=== PATIENT | male | born 1940 | race Caucasian/White ===

== ENCOUNTER 2017-03-17 13:59 | Emergency (ER) | payer MEDICARE, OTHER ==
--- NOTE | ~2017-03-17 | CT4 ---
[facility] A Service of [facility] RADIOLOGY TEXT RESULTS PATIENT: EMILIE BRINK LOCATION: [facility] : 40 UNIT #: [id number] AGE: [address]: David Brannon MD SEX: M ORDER DR: [id number] [facility] [address] [place], [place] [address] [id number] E MR#: [id number] #: [id number] NAME: EMILIE BRINK : 1940 SEX: M STUDY DATE/TIME: 03/17/2017 15:40 UNIT: [facility] ROOM: STUDY DESCRIPTION: CT Abd and Pelv Wo Cont Attending Physician: Cristofer Brannon M.D. Ordering Physician: Savage Lubin M.D. Primary Care Physician: No Primary Care Physician MEDICAL IMAGING REPORT This report is preliminary unless electronic signature is present EXAM CT of the abdomen and pelvis without contrast. INDICATIONS Abdominal pain for [address] of the abdomen and pelvis was performed with oral contrast only. Coronal and sagittal reformatted images were obtained. NOTE: This CT exam was performed with one or more of the following radiation dose reduction techniques: automatic exposure control, adjustment of mA and/or kV according to patient size, and iterative reconstruction. COMPARISON Comparison is made with CT of the abdomen and pelvis from 10/23/2016. FINDINGS The lung bases are clear. Cirrhosis of the liver. There is an ill-defined hypodense mass within the right lobe of the liver which is consistent with the biopsy proven hepatocellular carcinoma. There is also a small exophytic lesion in the left lobe of the liver also consistent with hepatocellular carcinoma. Cholelithiasis. Splenomegaly. The kidneys are unremarkable. The adrenal glands and pancreas are unremarkable. There has been a prior EVAR. 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 I am unsure if this is due to surgical intervention. There is a new fluid collection located within the left psoas muscle immediately adjacent to the aneurysm sac. It measures about 11.0 x 5.1 x 7.2 cm. There is no gas within the collection. PELVIS: There is trace free fluid. Sigmoid diverticulosis. The appendix is normal. Not mentioned above, there is a scant amount of ascites [facility] A Service of [facility] RADIOLOGY TEXT RESULTS PATIENT: EMILIE BRINK LOCATION: [facility] : 40 UNIT #: [id number] AGE: [address]: David Brannon MD SEX: M ORDER DR: adjacent to the tip of the liver. Bone windows demonstrate postoperative changes of the left side of the pelvis. Chronic compression deformity of L1. IMPRESSION 1. Cirrhosis with evidence of biopsy proven hepatocellular carcinoma. The HCCs are not adequately evaluated due to the lack of IV contrast. 2. Patient has a prior EVAR. The aneurysm sac has decreased in size since the most recent studies and previously had a very abnormal appearance with thickening and adjacent stranding. There has been development of a new fluid collection within the left psoas muscle which lies immediately adjacent to the aneurysm sac. The contents of the fluid collection are indeterminate. It is simple fluid and it does not containing gas to suggest obvious infection. I am unsure if the patient has had any operative intervention to evacuate the contents of the aneurysm sac given its significant decrease in size or if there is spontaneous evacuation of the aneurysm sac contents into the left psoas muscle. 3. Additional findings as described above. Dictated by... Miguel Ángel Elmore M.D. THIS IS AN ELECTRONICALLY VERIFIED REPORT Miguel Ángel Elmore M.D. at 03/19/2017 7:26 AM MORALES/humberto TD: 03/17/2017 20:00 JOB #: [id number] MEDICAL IMAGING REPORT Page 1 of 1 COPY
[~2017-03-17 13:59] MED LIST: ALBUTEROL17 GM INH; ASPIRIN81 M2 PO; ATENOLOL; ATENOLOL PO; ATENOLOL50 MG; ATENOLOL50 MG PO; AZITHROMYCIN250 MG PO; CHRONULAC10 GM/15 M PO; DIAZEPAM PO; DIAZEPAM10 MG PO; ECOTRIN81 M1 PO; GENERLAC; IBUPROFEN800 MG; IBUPROFEN800 MG PO; KEFLEX PO; KEFLEX500 M1 PO; LASIX20 MG PO; LINZESS145 MCG PO; METHADONE HCL10 MG PO; METHADONE PO; NICOTINE TRANSD21 MG EXT; NITROGLYCERIN0.4 MG SL; PERCOCET 10/3251 TAB PO; PLAVIX PO; POTASSIUM CHLO10 ME2 PO; PROTONIX PO; SPIRONOLACTONE50 MG PO; SYMBICORT; SYMBICORT80; SYMBICORT80 INH; TENORMIN25 MG PO; VALIUM10 MG PO
[2017-03-17 14:23] LABS: BASOPHIL# 0.1 X10e3 (0-0.3); BASOPHIL% 0.7 % (0-2.5); EOSINOPHIL# 0.1 X10e3 (0-0.7); EOSINOPHIL% 0.8 % (0.0-7.0); HEMATOCRIT 35.7 % (38.0-50.0); HEMOGLOBIN 11.6 gm/dL (13.0-16.0); LYMPHOCYTE# 1.5 X10e3 (1.0-3.5); LYMPHOCYTE% 17.5 % (17.0-45.0); MEAN CELL VOLUME 78.8 FL (83-96); MEAN CORPUSCULAR HEMOGLOBIN 25.5 PG (28-34); MEAN CORPUSCULAR HGB CONC 32.4 g/dL (30-36); MEAN PLATELET VOLUME 7.9 FL (6.5-11.5); MONOCYTE# 0.7 X10e3 (0-1.0); MONOCYTE% 8.1 % (3.0-12.0); NEUTROPHIL# 6.4 X10e3 (1.5-7.1); NEUTROPHIL% 72.9 % (40-75); PLATELET COUNT 166 X10e3 (140-420); RED BLOOD COUNT 4.53 X10e (3.90-5.60); RED CELL DISTRIBUTION WIDTH 18.3 % (11.0-15.5); WHITE BLOOD COUNT 8.8 X10e3 (4.0-10.5)
[2017-03-17 14:24] LABS: DIFF IND NO
[2017-03-17 14:43] LABS: BILIRUBIN, DIRECT 0.1 mg/dL (0.0-0.2); BILIRUBIN,INDIRECT 0.7 mg/dL (0.0-0.9); BILIRUBIN,TOTAL 0.8 mg/dL (0.2-2.0); BUN/CREATININE RATIO 42.85; CALCIUM SERUM 8.5 mg/dL (8.4-10.2); CREATININE SERUM 0.7 mg/dL (0.6-1.4); GLOM FILT RATE Estimated 91.1 mL/min (>60); POTASSIUM 3.9 mmol/L (3.5-5.1); PROTEIN TOTAL SERUM 7.4 g/dL (6.0-8.3)
[2017-03-17 15:23] LABS: URINE SOURCE CLEAN CATCH
[2017-03-17 15:27] LABS: URINE APPEARANCE CLEAR; URINE BLOOD TRACE (NEG); URINE COLOR DK YELLOW; URINE GLUCOSE NEG (NEG); URINE KETONE NEG (NEG); URINE LEUKOCYTE ESTERASE NEG (NEG); URINE NITRATE NEG (NEG); URINE PH 5.5 (5-8); URINE PROTEIN TRACE (NEG)
[2017-03-17 15:30] LABS: URINE BACTERIA AUWI NEG (NEGATIVE); URINE SQUAMOUS EPITHELIAL CELL NONE SEEN /[HPF]; UWBCS1 AUWI 0-2 (0-5)
[2017-03-17 15:37] LABS: CULTURE INDICATED? NO; URINE BILIRUBIN NEG (NEG)
== END 2017-03-17 19:10 | disposition left against medical advice (07) ==
LOC: CED 13:59
PROVIDERS: Emergency Medicine
DX: M54.5 Low back pain (principal); F41.9 Anxiety disorder, unspecified; M62.9 Disorder of muscle, unspecified; Z95.1 Presence of aortocoronary bypass graft; Z91.041 Radiographic dye allergy status; Z87.442 Personal history of urinary calculi; F17.210 Nicotine dependence, cigarettes, uncomplicated
CPT/HCPCS: 36415; 74176; 80048; 80076; 81003; 82150; 83690; 85025; 99284